=== PATIENT | female | born 1995 | race Caucasian/White ===

== ENCOUNTER → 2016-08-30 | Outpatient (CLI) | payer OTHER | LOC: CIMAGING 22:00 | PROVIDERS: ATTEND Podiatrist | DX: M77.41 Metatarsalgia, right foot (principal) | CPT/HCPCS: 73630-PO ==

== ENCOUNTER → 2016-09-17 | Outpatient (CLI) | payer OTHER | LOC: CIMAGING 10:14 | PROVIDERS: ATTEND Podiatrist | DX: M84.378D Stress fracture, left toe(s), subsequent encounter for fracture with routine healing (principal) | CPT/HCPCS: 73630-PO ==